=== PATIENT | male | born 1975 | race Asian ===

== ENCOUNTER 2022-12-16 23:17 | Emergency (ER) | payer BC, OTHER ==
[~2022-12-16] VITALS: Ht 177.8 cm; Wt 81.6 kg
[2022-12-16] MEDS ORDERED: HYDROCODONE/APAP 5/325MG TABLET ONE (23:37)
[2022-12-17] MEDS ORDERED: HYDROCODONE/APAP 5/325MG TABLET PO ONE
[2022-12-17 02:01] VITALS: BP 184/104; TEMP 98.1; O2SAT 98
== END 2022-12-17 02:01 | disposition home or self-care (01) ==
LOC: ER 23:20
DX: S13.8XXA Sprain of joints and ligaments of other parts of neck, initial encounter (principal); S43.492A Other sprain of left shoulder joint, initial encounter; S60.221A Contusion of right hand, initial encounter; I10 Essential (primary) hypertension; V89.2XXA Person injured in unspecified motor-vehicle accident, traffic, initial encounter; Y93.89 Activity, other specified; Y92.89 Other specified places as the place of occurrence of the external cause; Y99.8 Other external cause status
CPT/HCPCS: 72125-TC; 73030-TC; 73090-TC; 73130-TC